=== PATIENT | male | born 1985 | race Caucasian/White ===

== ENCOUNTER 2017-09-23 15:52 | Inpatient (IN) | payer OTHER ==
[2017-09-23 16:00] VITALS: O2SAT 18
[2017-09-23 17:19] LABS: BASO # 0.1 K/uL (0.0-0.2); BASO % 0.6 % (0.0-2.0); EOS # 0.1 K/uL (0.0-0.7); EOS % 0.5 % (0.0-4.0); HEMOGLOBIN 17.2 g/dL (12.0-18.0); LYMPH # 1.2 K/uL (1.0-4.3); LYMPH % 10.6 % (20.0-40.0); MEAN CELL VOLUME 83.2 fl (80.0-94.0); MEAN CORPUSCULAR HGB CONC 33.7 g/dL (33.0-37.0); MEAN PLATELET VOLUME 8.4 fl (7.2-11.7); MONO # 0.6 K/uL (0.0-0.8); MONO % 5.2 % (0.0-10.0); NEUT # 9.5 K/uL (1.8-7.0); NEUT % 83.1 % (50.0-75.0); NRBC % 0.2 % (0.0-0.0); RBC 6.13 Mil/uL (4.40-5.90); RED CELL DISTRIBUTION WIDTH 13.6 % (11.5-14.5); WHITE BLOOD COUNT 11.5 K/uL (4.8-10.8)
[2017-09-23 18:11] LABS: ALB/GLOB RATIO 1.4 (1.0-2.1); ALBUMIN 4.5 g/dL (3.5-5.0); ALT/SGPT 61 U/L (21-72); AST/SGOT 32 U/L (17-59); BLOOD UREA NITROGEN 12 mg/dl (9-20); CALCIUM 9.7 mg/dL (8.4-10.2); GFR AFRICAN-AMERICAN > 60; GFR NON-AFRICAN AMERICAN > 60
[2017-09-23 18:11] LABS: URINE BACTERIA RARE (<OCC); URINE BILIRUBIN NEGATIVE (NEGATIVE); URINE BLOOD SMALL (NEGATIVE); URINE CLARITY SLIGHTY-CLOUDY (Clear); URINE COLOR YELLOW (YELLOW); URINE GLUCOSE (UA) NEG (Normal); URINE LEUKOCYTE ESTERASE NEG Leu/uL (Negative); URINE NITRATE NEGATIVE (NEGATIVE); URINE PROTEIN NEGATIVE (NEGATIVE)
[2017-09-23 18:25] LABS: BARBITURATES, UR NEGATIVE (NEGATIVE); BENZODIAZEPINES, UR NEGATIVE (NEGATIVE); OPIATES, UR NEGATIVE (NEGATIVE); PHENCYCLIDINE, UR NEGATIVE (NEGATIVE)
--- NOTE | 2017-09-23 19:03 | ED PDOC ---
HPI: Psych/Substance Abuse Time Seen by Provider: 09/23/17 16:02 Chief Complaint (Nursing): Psychiatric Evaluation History Per: Patient Additional Complaint(s): Pt. states he was picked up by police today but is uncertain as to why. Pt. states he believes that it may be due to the message he sent to his friend Vince on LinkedIn. States that he got in contact with his college friend via [employer] and he informed her that he's been feeling suicidal and has developed a plan to jump off a building. Pt. states he's been feeling depressed intermittently since 2011. States he did have 1 suicidal attempt in 2011 and had to stay in the ICU for 7-8 days due to NyQuil. Has been taking Zoloft and Risperdal but stopped 3 weeks ago as it makes him feel "numb." Past Medical History Reviewed: Historical Data, Nursing Documentation, Vital Signs Vital Signs: Last Vital Signs Temp 98.0 F 09/23/17 15:55 Pulse 109 H 09/23/17 15:55 Resp 16 09/23/17 15:55 BP 141/95 H 09/23/17 17:21 Pulse Ox 18 L 09/23/17 15:55 - Surgical History Surgical History: Tonsillectomy - Family History Family History: States: No Known Family Hx - Immunization History Hx Tetanus Toxoid Vaccination: No Hx Influenza Vaccination: No Hx Pneumococcal Vaccination: No - Allergies Allergies/Adverse Reactions: Allergies Allergy/AdvReac Type Severity Reaction Status Date / Time No Known Allergies Allergy Verified 09/23/17 15:59 Review of Systems ROS Statement: Except As Marked, All Systems Reviewed And Found Negative Psych: Positive for: Depression, Suicidal ideation Physical Exam - Reviewed Nursing Documentation Reviewed: Yes Vital Signs Reviewed: Yes - Physical Exam Appears: Positive for: Well, Non-toxic, No Acute Distress Head Exam: Positive for: ATRAUMATIC, NORMAL INSPECTION, NORMOCEPHALIC Skin: Positive for: Normal Color, Warm. Negative for: Rash Eye Exam: Positive for: EOMI, Normal appearance, PERRL ENT: Positive for: Normal ENT Inspection Neck: Positive for: Normal, Painless ROM Cardiovascular/Chest: Positive for: Regular Rate, Rhythm Respiratory: Positive for: CNT, Normal Breath Sounds Gastrointestinal/Abdominal: Positive for: Normal Exam, Bowel Sounds, Soft. Negative for: Tenderness Back: Positive for: Normal Inspection Extremity: Positive for: Normal ROM Neurologic/Psych: Positive for: Alert, Oriented, Mood/Affect (calm, cooperative) . Negative for: Aphasia, Facial Droop - Laboratory Results Result Diagrams: 09/23/17 17:14 09/23/17 17:14 - ECG ECG: Positive for: Interpreted By Me ECG Rhythm: Positive for: Sinus Rhythm. Negative for: ST/T Changes Rate: 81 O2 Sat by Pulse Oximetry: 18 - Radiology X-Ray: Interpreted by Me (CXR) X-Ray Interpretation: No Acute Disease - Progress ED Course And Treament: Labs ordered. Pt. placed on 1:1. Crisis evaluation ordered. Pt. evaluated by crisis and at the request of Dr. Vázquez pt is to be admitted. Disposition - Clinical Impression Clinical Impression: Depression - Patient ED Disposition Is Patient to be Admitted: Yes - Disposition Disposition Time: 20:00 Condition: STABLE Forms: [employer] (Polish)
[2017-09-23 20:22] LABS: ACETAMINOPHEN < 10.0 ug/ml (10.0-30.0); SALICYLATE < 1.0 mg/dl
[2017-09-23] MEDS ORDERED: Alum-Mag Hydrox-Simethicone Susp (30 mL) PO PRN (22:05)
[2017-09-23] MEDS ORDERED: DiphenhydrAMINE 50 mg/ml Inj IM PRN (22:05)
[2017-09-23] MEDS ORDERED: Magnesium Hydroxide Susp 30 ml UD PO PRN (22:05)
--- NOTE | 2017-09-23 22:21 | PCM.BM ---
<Iván Draper J - Last Filed: 09/23/17 22:19> Treatment Plan Problems - Problems identified on initial assessmt Suicidal Ideation Date Initiated: 09/23/17 Time Initiated: 22:20 Assessment reference: NA Status: Active Treatment assets and liabiliti Patient Assests: cooperative, educated, physically healthy, negotiates basic needs Patient Liabilities: live alone, financial problems, poor support system - Milieu Protocol Maintain good personal hygiene: daily Remind patient to perform daily oral care , every other day Encourage regular showers Conduct patient checks and document Observation sheet: Q15 minutes Maintain personal safety: every shift Educate patient to report safety concerns to staff, every shift Monitor environment for contraband/sharps Medication safety: Monitor for expected outcome, potential side effects: every shift, Assess barriers to learning: every shift, Assess readiness for medication education: every shift <Jimbo Mccormick J - Last Filed: 09/29/17 12:27> Family Contact Family involvement: Famliy/SO not involved Family contact: Patient declines to allow family contact at present Family contact name: Pt denied. - Goals for Treatment Patient goals for treatment: Pt is focused on discharge and concrete needs at this time. Discharge/Continuing Care - Education Needs Education Needs: Patient Medication, Patient Diagnosis/Disease Process, Patient Coping Skills, Patient Community resources, Patient Personal Hygiene/Grooming - Discharge Discharge Criteria: Tolerates medication w/o severe side effects, Free of paranoid thoughts, Free of agitation, Normal sleep pattern, Ability to care for self, Reduction of target symptoms Discharge to:: Home - Treatment Team Participation Discussed with Family/SO: No Was Patient/Family/SO present at Treatment Team Meeting: Yes <Eden Vázquez - Last Filed: 09/29/17 14:04> - Diagnosis (1) Psychosis Status: Acute Interventions: 09/29/17 14:03 pharmacotherapy
[2017-09-24 06:22] LABS: T4 8.79 ug/dl (5.5-11.0)
--- NOTE | 2017-09-24 07:55 | RAD ---
HISTORY: clearance COMPARISON: No prior. FINDINGS: LUNGS: No active pulmonary disease. PLEURA: No significant pleural effusion identified, no pneumothorax apparent. CARDIOVASCULAR: Normal. OSSEOUS STRUCTURES: No significant abnormalities. VISUALIZED UPPER ABDOMEN: Normal. OTHER FINDINGS: None. IMPRESSION: No acute cardiopulmonary disease appreciated.
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
[2017-09-24] MEDS: Risperidone M tab 1 MG PO SCH ×2 (14:00→18:18)
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
--- NOTE | 2017-09-24 15:54 | CARD ---
APPROVED REPORT EKG Measurement Heart [id number] <Conclusion> Normal sinus rhythm Rightward axis Incomplete right bundle branch block Borderline ECG
[2017-09-25] MEDS: Risperidone M tab 1 MG PO SCH (09:26)
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
--- NOTE | 2017-09-26 10:38 | PCM.PYCHPN ---
Psychiatric Progress Note - Psychiatric Progress Note Patient seen today, length of contact: Patient evaluated, case discussed w/ team , chart reviewed Patient Chief Complaint: "I think I have [place] syndrome." Problems Identified/Issues Discussed: Patient continues to be paranoid and delusional. We discussed that the Risperdal will be changed to HS and that it will likely need continued titration. He can understand that others may not believe/agree w/ his delusional thoughts. Medication Change: Yes (Change Risperdal to 2 mg PO HS) Medical Record Reviewed: Yes Consults ordered or reviewed: Medicine consult Mental Status Examination - Cognitive Function Orientation: Person, Place, Situation, Time Memory: Intact Attention: Poor Concentration: Poor Association: Loose Fund of Knowledge: WNL Decription of patient's judgement and insights: Poor I/J - Mood Mood: Depressed - Affect Affect: Constricted, Depressed - Speech Speech: Soft - Formal Thought Process Formal Thought Process: Delusions, Paranoia, Loosening of associations, Circumstantial Psychotic Thoughts and Behaviors: +Delusions/paranoia - Suicidal Ideation Suicidal Ideation: No - Homicidal Ideation Homicidal Ideation: No Goal/Treatment Plan - Goal/Treatment Plan Need for Continued Stay: Remain at risks for inpatient hospitalization, Discharge may exacerbated symptoms Progress Toward Problem(s) and Goals/Treatment Plan: Bipolar Disorder w/ psychotic features vs Schizoaffective Disorder; patient needs continued hospitalization for treatment and safety. -Individual and group therapy -Modify Risperdal dosing to 2 mg PO HS; patient not agreeable to dosage increase at this time -Continue Wellbutrin -Disposition planning Estimated Date of D/C: 09/30/17
--- NOTE | 2017-09-27 10:11 | PCM.PYCHPN ---
Psychiatric Progress Note - Psychiatric Progress Note Patient seen today, length of contact: Patient evaluated, case discussed w/ team , chart reviewed Patient Chief Complaint: I do not want anything to do with my parents they are not my real parents Problems Identified/Issues Discussed: pt on evaluation, more kempt and more attending to his personal hygiene , pt however continues to be psychotic, believing that his parents are not his biological parents and that they would intend to hurt him emotionally, pt has no insight into the fact that he was stalking his old classmate and that he was endangering her . pt continues to be circumstantial and tangential , when asked about suicidal ideations, pt denied any current suicidal thoughts denied homicidal ideations denied command hallucinations no reported side effects of medications Medical Problems: pt reported one hospitalization in 2011 after overdose partial compliance with outpatient treatment DSM 5 Symptoms Update: schizoaffective disorder bipolar type Medication Change: Yes (increase risperidone to 3mgqhs) Medical Record Reviewed: Yes Mental Status Examination - Cognitive Function Orientation: Person, Place, Situation, Time Memory: Intact Attention: WNL Concentration: Poor Association: Loose Fund of Knowledge: WNL Decription of patient's judgement and insights: impaired insight and poor judgement - Mood Mood: Depressed, Anxious - Affect Affect: Constricted, Depressed - Speech Speech: Soft - Formal Thought Process Formal Thought Process: Delusions, Paranoia, Loosening of associations, Circumstantial Psychotic Thoughts and Behaviors: pt has delusions of persecution towards his parents - Suicidal Ideation Suicidal Ideation: No - Homicidal Ideation Homicidal Ideation: No Goal/Treatment Plan - Goal/Treatment Plan Need for Continued Stay: Remain at risks for inpatient hospitalization, Discharge may exacerbated symptoms Progress Toward Problem(s) and Goals/Treatment Plan: increase risperidone to 3mg qhs continue wellbutrin 75 mg daily and increase according to symptoms and signs group and supportive therapy monitor pt for psychopharmacological effects and side effect profile social welfare research worker to contact family for collateral information upon pt consent Estimated Date of D/C: 09/30/17
[2017-09-27] MEDS: Risperidone M tab 1 MG PO SCH (21:02)
--- NOTE | 2017-09-28 15:59 | PCM.PYCHPN ---
Psychiatric Progress Note - Psychiatric Progress Note Patient seen today, length of contact: Patient evaluated, case discussed w/ team , chart reviewed Patient Chief Complaint: I am feeling better and I will start planning to get a job Problems Identified/Issues Discussed: pt on evaluation, more kempt and more attending to his personal hygiene , pt thought process less disorganized, reported that he has written a list of his possible goals on dischage, discussed with patient importance of medication compliance on discharge, , pt denied any current side effects of medications, denied suicidal or homicidal ideations Medical Problems: pt reported one hospitalization in 2011 after overdose partial compliance with outpatient treatment DSM 5 Symptoms Update: schizoaffective disorder bipolar Medication Change: No Medical Record Reviewed: Yes Mental Status Examination - Cognitive Function Orientation: Person, Place, Situation, Time Memory: Intact Attention: WNL Concentration: WNL Fund of Knowledge: WNL Decription of patient's judgement and insights: impaired insight and poor judgement - Mood Mood: Anxious, Neutral - Affect Affect: Constricted, Depressed - Speech Speech: Appropriate Additional comments: more goal directed and less disorganized - Formal Thought Process Formal Thought Process: Paranoia, Circumstantial Psychotic Thoughts and Behaviors: pt has delusions of persecution towards his parents - Suicidal Ideation Suicidal Ideation: No - Homicidal Ideation Homicidal Ideation: No Goal/Treatment Plan - Goal/Treatment Plan Need for Continued Stay: Remain at risks for inpatient hospitalization, Discharge may exacerbated symptoms Progress Toward Problem(s) and Goals/Treatment Plan: continue risperidone 3mg qhs continue wellbutrin 75 mg daily and increase according to symptoms and signs group and supportive therapy monitor pt for psychopharmacological effects and side effect profile social services assistant to contact family for collateral information upon pt consent Estimated Date of D/C: 09/30/17
[2017-09-29] MEDS: Risperidone M tab 1 MG PO SCH (01:34)
[2017-09-29 09:04] VITALS: RESP 20
--- NOTE | 2017-09-29 10:17 | PCM.PYCHPN ---
Psychiatric Progress Note - Psychiatric Progress Note Patient seen today, length of contact: Patient evaluated, case discussed w/ team , chart reviewed Patient Chief Complaint: I have a lot of resentment towards my parents Problems Identified/Issues Discussed: pt on evaluation, more kempt and more attending to his personal hygiene , pt however still presenting with delusional thought process m, continues to believe that his parents are not his biological parents, refusing to have the undersigned contact any of his family members for collateral information pt continues to be hypomanc stating that he should be working in [employer] and will be able to find his chances in [facility] denied any current perceptual disturbances denied suicidal or homicidal ideations compliant with medications but has limited insight into illness Medical Problems: pt reported one hospitalization in 2011 after overdose partial compliance with outpatient treatment DSM 5 Symptoms Update: schizoaffective disorder bipolar Medication Change: Yes (increase risperidoneto 4mg) Medical Record Reviewed: Yes Mental Status Examination - Cognitive Function Orientation: Person, Place, Situation, Time Memory: Intact Attention: WNL Concentration: WNL Fund of Knowledge: WNL Decription of patient's judgement and insights: impaired insight and poor judgement - Mood Mood: Anxious, Neutral - Affect Affect: Constricted - Speech Speech: Appropriate - Formal Thought Process Formal Thought Process: Paranoia, Circumstantial Psychotic Thoughts and Behaviors: pt has delusions of persecution towards his parents also with grandiose delusions - Suicidal Ideation Suicidal Ideation: No - Homicidal Ideation Homicidal Ideation: No Goal/Treatment Plan - Goal/Treatment Plan Need for Continued Stay: Remain at risks for inpatient hospitalization, Discharge may exacerbated symptoms Progress Toward Problem(s) and Goals/Treatment Plan: increase risperidone to 4mg qhs continue wellbutrin 75 mg daily and increase according to symptoms and signs group and supportive therapy monitor pt for psychopharmacological effects and side effect profile outreach and education social worker to contact family for collateral information upon pt consent Estimated Date of D/C: 10/01/17
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
--- NOTE | 2017-10-01 12:03 | PCM.PYCHPN ---
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 Problems Identified/Issues Discussed: pt seen in his room, continues to present with delusional disorganized thought process, pt continues to report that he suspects his parents were trying to poison him with the medications they gave him when he was in [place], pt continues to think they are not his biological parents and refusing to give consent for staff to talk to them, discussed with pt being started on risperidone consta injection to ensure compliance on discharge but he refused pt however reported mood is better denied any current suicidal thoughts, continues to present with grandiose delusions stating he will work in political field in [facility] but 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 so he can save to move to [place] and start working in politics pt hypomanic delusional denied any current suicidal ideations , denied any current homoicidal thoughts, denied perceptual disturbances, no reported side effects of medications Medical Problems: pt reported one hospitalization in 2011 after overdose partial compliance with outpatient treatment Medication Change: No Medical Record Reviewed: Yes Mental Status Examination - Cognitive Function Orientation: Person, Place, Situation, Time Memory: Intact Attention: WNL Concentration: WNL Fund of Knowledge: WNL Decription of patient's judgement and insights: impaired insight and poor judgement - Mood Mood: Anxious, Neutral - Affect Affect: Constricted - Speech Speech: Appropriate - Formal Thought Process Formal Thought Process: Paranoia, Circumstantial Psychotic Thoughts and Behaviors: pt has delusions of persecution towards his parents also with grandiose delusions - Suicidal Ideation Suicidal Ideation: No - Homicidal Ideation Homicidal Ideation: No Goal/Treatment Plan - Goal/Treatment Plan Need for Continued Stay: Remain at risks for inpatient hospitalization, Discharge may exacerbated symptoms Progress Toward Problem(s) and Goals/Treatment Plan: continue with risperidone 4mg qhs pt signed 48 hour notice requesting to leave the hospital, discussed with pt the need to continue inpatient treatment for further stabilization, pt declined pt referred for screening for involuntary admission for further stabilization group and supportive therapy monitor pt for psychopharmacological effects and side effect profile director of social services to contact family for collateral information upon pt consent Estimated Date of D/C: 10/01/17
[2017-10-01 16:17] VITALS: BP 146/88; PULSE 106; TEMP 97.9
--- NOTE | 2017-10-03 11:41 | PCM.PYCHDC ---
Mental Status Examination - Mental Status Examination Orientation: Person, Place Memory: Intact Mood: Anxious Affect: Constricted Speech: Soft Attention: WNL Concentration: WNL Association: Loose Fund of Knowledge: WNL Formal Thought Process: Delusions, Paranoia Description of patient's judgement and insight: impaired insight and poor judgement Psychotic Thoughts and Behaviors: pt has delusions of persecution towards his parents also with grandiose delusions Suicidal Ideation: No Current Homicidal Ideation?: No Discharge Summary - Discharge Note Reason for Hospitalization: Patient is a 32 year old single male with previous psychiatric diagnosis of bipolar disorder versus schizoaffective disorder , pt poor historian reported one psychiatric hospitalization in 2011 in [place] after overdose on 20 nyquill tablets, and day after was found by family and taken to hospital since then pt has been placed on risperidone and as per him on some mood stabilizers, he would not elaborate on the name, pt reported that about last two years 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 , 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 He stated in hindsight it may not have been the best idea but he had read on a suicide prevention to reach out to others. pt continued to request from her to meet him when she refused he sent the fellow classmate text messages about killing himself by jumping off the bridge . His female friend got scared and alerted the authorities. Patient was brought to ER pt presenting with a flat mood a flat affect, anhedonia , dysphoria, delusional thought process denied suicidal or homicidal ideations on the unit, denied command hallucinations, appears internally preoccupied with thought blocking Consultations:: List each consultation separately and include: 1. Reason for request. 2. Findings. 3. Follow-up Summary of Hospital Course include:: 1. Description of specific treatment plan utilized for patients during their course of treatmen. 2. Summarize the time- course for resolution of acute symptoms and/or regressed behaviors. 3. Describe issues identified and worked on during hospitalization. 4. Describe medication utilized. 5. Describe medical problems identified and treated. 6. Reassessment of suicide risk Summary of Hospital Course: ipt on admission was started on risperidone it was uptitrated to 4mg pt continued to present with dlusions of persecution , disorganized thought process pt signed 48 hour notice requesting to be discharged pt however was still presenting with disorganized thought process was referred forscreening for involuntary admission for further stabilization pt was acccepted and was [facility] - Diagnosis (1) Psychosis Status: Acute - Final Diagnosis (DSM 5) Condition upon Discharge: STABLE DSM 5: schizoaffective disorder bipolar Disposition: Transfer [facility] Follow-up Treatment Plan: continue with risperidone 4mg qhs pt signed 48 hour notice requesting to leave the hospital, discussed with pt the need to continue inpatient treatment for further stabilization, pt declined pt referred for screening for involuntary admission for further stabilization group and supportive therapy monitor pt for psychopharmacological effects and side effect profile clinical social work aide to contact family for collateral information upon pt consent - Antipsychotic Medications Pt discharged on 2 or more routine antipsychotic medications: No
== END 2017-10-02 06:16 | DRG 430 ==
LOC: H.ER 15:52 → H.ERHOLD 20:15 → H.PSYCH 21:54
PROVIDERS: ADMIT Psychiatry & Neurology Psychiatry; ATTEND Psychiatry & Neurology Psychiatry
PROC: GZHZZZZ Group Psychotherapy (ICD-10-PCS; principal; 2017-09-23)
PROC: GZ56ZZZ Individual Psychotherapy, Supportive (ICD-10-PCS; 2017-09-23)
DX: F25.0 Schizoaffective disorder, bipolar type (principal); R45.851 Suicidal ideations; Z91.14 Patient's other noncompliance with medication regimen; E78.00 Pure hypercholesterolemia, unspecified